=== PATIENT | female | born 1985 | race Caucasian/White ===

== ENCOUNTER 2017-02-06 00:53 | Emergency (ER) | payer SELFPAY ==
[2017-02-06 01:00] VITALS: BP 142/92
[2017-02-06] MEDS ORDERED: IBUPROFEN 800 MG TABLET PO ONE (02:41)
[2017-02-06] MEDS ORDERED: ACETAMINOPHEN 325 MG TABLET PO ONE (02:42)
[2017-02-06] MEDS ORDERED: SILVER SULFADIAZINE 1% CREAM 25 GM TP ONE (02:42)
--- NOTE | 2017-02-06 02:45 | ER Document Report ---
HPI - HPI Patient complains to provider of: sunburn twice Onset: Yesterday - and the day before Onset/Duration: Gradual Quality of pain: Burning Pain Level: 2 Context: 31-year-old female has sunburn that hurts. 2 days ago burned her upper back and is starting to peel and then yesterday when she was having to move things out of the house she got sunburn on bilateral dorsal. Associated Symptoms: None Exacerbated by: Denies Relieved by: Denies Similar symptoms previously: No Recently seen / treated by doctor: No - ROS ROS below otherwise negative: Yes Systems Reviewed and Negative: Yes All other systems reviewed and negative - REPRODUCTIVE LMP: 01/30/17 Reproductive: DENIES: : - DERM Skin Color: Normal, [place] Past Medical History - General Information source: Patient - Social History Smoking Status: Current Every Day Smoker Frequency of alcohol use: None Drug Abuse: None Lives with: Family Family History: None Patient has suicidal ideation: No Patient has homicidal ideation: No - Past Medical History Cardiac Medical History: Reports: Hx Hypertension Pulmonary Medical History: Reports: Hx Pneumonia - 2008 Neurological Medical History: Reports: Hx Migraine, Hx Seizures - 07/2015 Endocrine Medical History: Reports: Hx Diabetes Mellitus Type 2, Hx Hypothyroidism Renal/ Medical History: Reports: Hx Ovarian Cysts. Denies: Hx Peritoneal Dialysis GI Medical History: Reports: Hx Gastroesophageal Reflux Disease, Hx Colonoscopy , Hx Endoscopy Musculoskeltal Medical History: Reports Hx Arthritis, Reports Hx Musculoskeletal Deformity, Reports Hx Musculoskeletal Trauma Psychiatric Medical History: Reports: Hx Anxiety, Hx Attention Deficit Hyperactivity Disorder Traumatic Medical History: Reports: Hx Fractures - Left heel right toe Past Surgical History: Reports: Hx Abdominal Surgery - GASTRIC BYPASS, Hx Section, Hx Gastric Bypass Surgery, Hx Orthopedic Surgery - L WRIST CYST - Immunizations Immunizations up to date: Yes Hx Diphtheria, Pertussis, Tetanus Vaccination: Yes Vertical Provider Document - CONSTITUTIONAL Agree With Documented VS: Yes Exam Limitations: No Limitations - INFECTION CONTROL TRAVEL OUTSIDE OF THE [place] IN LAST 30 DAYS: No - HEENT HEENT: Normal ENT Exam - NECK Neck: Supple. negative: Lymphadenopathy-Left, Lymphadenopathy-Right - RESPIRATORY Respiratory: Breath Sounds Normal, No Respiratory Distress O2 Sat by Pulse Oximetry: 99 - CARDIOVASCULAR Cardiovascular: Regular Rate, Regular Rhythm - GI/ABDOMEN Gastrointestinal: Abdomen Soft, Abdomen Non-Tender - BACK Back: Normal Inspection - MUSCULOSKELETAL/EXTREMETIES Musculoskeletal/Extremeties: MAEW, FROM - NEURO Level of Consciousness: Awake, Alert Motor/Sensory: No Motor Deficit, No Sensory Deficit - DERM Integumentary: Warm, Dry Notes: 1 degree sunburn to dorsal bilateral thighs and upper back Course - Vital Signs Vital signs: Temp Pulse Resp BP Pulse Ox 97.8 F 90 16 142/92 H 99 02/06/17 00:58 02/06/17 00:58 02/06/17 00:58 02/06/17 00:58 02/06/17 00:58 Discharge - Discharge Clinical Impression: First-degree sunburn Condition: Good Disposition: HOME, SELF-CARE Instructions: Sulfa Medications ([facility]), Anti-Inflammatory Medication ([facility]), Acetaminophen, Delaney ([facility]) Additional Instructions: cool compress silvadine cream on back and upper leg delaney over the counter tylenol motrin for inflammation and pain NO sunexposure until healed, then use sunblock Prescriptions: Ibuprofen [Motrin 800 mg Tablet] 800 mg PO Q8HP PRN #30 tab PRN Reason: Silver Sulfadiazine [Silvadene 1% Cream 50 gm Tube] 1 applic TP DAILY #50 grams
== END 2017-02-06 03:29 | disposition home or self-care (01) ==
LOC: ER 00:53
DX: L55.0 Sunburn of first degree (principal); I10 Essential (primary) hypertension; F17.200 Nicotine dependence, unspecified, uncomplicated
CPT/HCPCS: 99282

== ENCOUNTER 2017-04-06 06:29 | Emergency (ER) | payer SELFPAY ==
[2017-04-06] MEDS ORDERED: CLINDAMYCIN PHOSPHATE INJ 300 MG/2 ML SDV IM ONE (07:09)
--- NOTE | 2017-04-06 07:09 | ER Document Report ---
ED Oral Problem - General Mode of Arrival: Ambulatory Information source: Patient TRAVEL OUTSIDE OF THE [place] IN LAST 30 DAYS: No - HPI Patient complains to provider of: Toothache Associated symptoms: Toothache - General Chief Complaint: Toothache Stated Complaint: POSSIBLY ABSCESS TEETH,SWELLING,PAIN Time Seen by Provider: 04/06/17 06:42 Notes: Patient is a 31 year old female who presents to the ED with complaints of a toothache that began on Saturday and worsened on . Patient states yesterday she began having swelling to her face and this morning the pain became excruciating. Patient is on Amoxicillin and started that yesterday. Patient has been taking IBU 800 and OTC Tylenol with no relief. Patient states the pain radiates through her head. She states she has not been to a dentist because she does not have insurance. Patient states she also has no money because her recently left her and her two children. (JAMIE NAVARRO) - Related Data Allergies/Adverse Reactions: ceftriaxone [From Rocephin] Allergy (Verified 04/06/17 06:38) coconut Allergy (Verified 04/06/17 06:38) Iodinated Contrast- Oral and IV Dye Allergy (Verified 04/06/17 06:38) lorazepam [From Ativan] Allergy (Verified 04/06/17 06:38) shellfish derived Allergy (Verified 04/06/17 06:38) Past Medical History - General Information source: Patient - Social History Smoking Status: Unknown if Ever Smoked Family History: None Patient has suicidal ideation: No Patient has homicidal ideation: No - Past Medical History Cardiac Medical History: Reports: Hx Hypertension Pulmonary Medical History: Reports: Hx Pneumonia - 2008 Neurological Medical History: Reports: Hx Migraine, Hx Seizures - 07/2015 Endocrine Medical History: Reports: Hx Diabetes Mellitus Type 2, Hx Hypothyroidism Renal/ Medical History: Reports: Hx Ovarian Cysts. Denies: Hx Peritoneal Dialysis GI Medical History: Reports: Hx Gastroesophageal Reflux Disease, Hx Colonoscopy , Hx Endoscopy Musculoskeltal Medical History: Reports Hx Arthritis, Reports Hx Musculoskeletal Deformity, Reports Hx Musculoskeletal Trauma Psychiatric Medical History: Reports: Hx Anxiety, Hx Attention Deficit Hyperactivity Disorder Traumatic Medical History: Reports: Hx Fractures - Left heel right toe Past Surgical History: Reports: Hx Abdominal Surgery - GASTRIC BYPASS, 2001, Hx Section, Hx Gastric Bypass Surgery, Hx Orthopedic Surgery - L WRIST CYST, 1998 - Immunizations Immunizations up to date: Yes Hx Diphtheria, Pertussis, Tetanus Vaccination: Yes Review of Systems - Review of Systems Constitutional: No symptoms reported EENT: See HPI, Mouth swelling, Dental problem Cardiovascular: No symptoms reported Respiratory: No symptoms reported Gastrointestinal: No symptoms reported Genitourinary: No symptoms reported Female Genitourinary: No symptoms reported Musculoskeletal: No symptoms reported Skin: No symptoms reported Hematologic/Lymphatic: No symptoms reported Neurological/Psychological: No symptoms reported Physical Exam - General General appearance: Appears well, Alert In distress: None - HEENT Head: Normocephalic, Atraumatic Eyes: Normal Extraocular movements intact: Yes Pupils: PERRL Mouth/Lips: Other - all teeth are rotten down to the root and need extracted, no decrepitus or necrosis, no secondary infection or lesions Mucous membranes: Normal Pharynx: Normal, Other - no difficulty swallowing Neck: Normal - non tender - Respiratory Respiratory status: No respiratory distress Breath sounds: Normal - Cardiovascular Rhythm: Regular Heart sounds: Normal auscultation Murmur: No - Abdominal Inspection: Normal Distension: No distension - Back Back: Normal - Extremities General upper extremity: Normal inspection, Normal ROM General lower extremity: Normal inspection, Normal ROM - Neurological Neuro grossly intact: Yes - Psychological Associated symptoms: Normal affect, Normal mood - Skin Skin Temperature: Warm Skin Moisture: Dry Skin Color: Normal Course - Re-evaluation Re-evalutation: 04/06/17 07:11 Patient presents emergency room 3-4 day history of increasing dental pain in her upper teeth with swelling in the left side of her face. No difficulty breathing swelling fever trismus stridor or drooling. Her dentition overall are rotten and need to be removed in their entirety. She says it always is painful got a little bit worse past couple days and has some mild facial swelling on the left. Overall dentition teeth are rotten and extracted. No secondary abscess crepitus necrosis difficulty breathing or swelling. Patient is given clindamycin discharge on clindamycin and Naprosyn. She is going to follow-up with the dental clinic as an outpatient and discussed reasons for ED return sooner 04/06/17 07:12 (JESSICA UGALDE) - Vital Signs Vital signs: Temp Pulse Resp BP Pulse Ox 98.6 F 74 15 100/68 97 04/06/17 07:19 04/06/17 07:19 04/06/17 07:19 04/06/17 07:19 04/06/17 07:19 Discharge - Discharge Clinical Impression: Poor overall dentition, Facial swelling with odontalgia Condition: Stable Disposition: HOME, SELF-CARE Instructions: [facility] Prescriptions: Clindamycin HCl 300 mg PO BID #14 capsule Referrals: [facility] [Provider Group] - Follow up in 3-5 days (Return to the emergency department for increasing worsening or new symptoms) Scribe Attestation: 04/06/17 07:11 I personally performed the services described in the documentation reviewed the documentation recorded by my scribe in my presence and it accurately and completely records my words and actions (JESSICA UGALDE) Scribe Documentation - Scribe Written by Scribe:: tom Dickson, 04/06/2017, 0723 acting as scribe for :: Bro
[2017-04-06 07:24] VITALS: BP 100/68
== END 2017-04-06 07:42 | disposition home or self-care (01) ==
LOC: ER 06:29
DX: K08.89 Other specified disorders of teeth and supporting structures (principal); R22.0 Localized swelling, mass and lump, head
CPT/HCPCS: 96372; 99282

== ENCOUNTER 2017-04-06 13:24 | Emergency (ER) | payer SELFPAY ==
[2017-04-06 13:50] VITALS: BP 126/76
[2017-04-06] MEDS ORDERED: LIDOCAINE 2% VISCOUS SOLN 20 ML UDCUP PO ONE (14:12)
[2017-04-06] MEDS ORDERED: KETOROLAC TROMETHAMINE 60 MG/2 ML SDV IM ONE (14:12)
[2017-04-06] MEDS ORDERED: CLINDAMYCIN HCL 150 MG CAPSULE PO ONE (14:16)
--- NOTE | 2017-04-06 14:32 | ER Document Report ---
HPI - HPI Patient complains to provider of: Dental abscess and facial swelling Onset: Other Onset/Duration: Persistent Quality of pain: Throbbing Severity: Severe Pain Level: 5 Context: Patient was seen in the emergency room this morning and prescribed clindamycin 300 mg twice a day for 7 days. Patient is complaining of excruciating pain that is radiating to her head and down her neck. Associated Symptoms: Other - Facial swelling, left Exacerbated by: Denies Relieved by: Denies Similar symptoms previously: Yes Recently seen / treated by doctor: Yes - ROS ROS below otherwise negative: Yes Systems Reviewed and Negative: Yes All other systems reviewed and negative - CONSTITUTIONAL Constitutional: DENIES: Fever - EENT EENT: DENIES: Congestion Notes: Left dental pain and facial swelling - NEURO Neurology: REPORTS: Headache - CARDIOVASCULAR Cardiovascular: DENIES: Chest pain - RESPIRATORY Respiratory: DENIES: Trouble Breathing - GASTROINTESTINAL Gastrointestinal: DENIES: Abdominal Pain - URINARY Urinary: DENIES: Dysuria - REPRODUCTIVE Reproductive: DENIES: : - MUSCULOSKELETAL Musculoskeletal: DENIES: Extremity pain - DERM Skin Color: Normal Skin Problems: None Past Medical History - General Information source: Patient - Social History Smoking Status: Current Every Day Smoker Cigarette use (# per day): Yes Frequency of alcohol use: Occasional Drug Abuse: None Lives with: Family Family History: None Patient has suicidal ideation: No Patient has homicidal ideation: No - Past Medical History Cardiac Medical History: Reports: Hx Hypertension Pulmonary Medical History: Reports: Hx Pneumonia - 2008 Neurological Medical History: Reports: Hx Migraine, Hx Seizures - 07/2015 Endocrine Medical History: Reports: Hx Diabetes Mellitus Type 2, Hx Hypothyroidism Renal/ Medical History: Reports: Hx Ovarian Cysts GI Medical History: Reports: Hx Gastroesophageal Reflux Disease, Hx Colonoscopy , Hx Endoscopy Musculoskeltal Medical History: Reports Hx Arthritis, Reports Hx Musculoskeletal Deformity, Reports Hx Musculoskeletal Trauma Psychiatric Medical History: Reports: Hx Anxiety, Hx Attention Deficit Hyperactivity Disorder Traumatic Medical History: Reports: Hx Fractures - Left heel right toe Past Surgical History: Reports: Hx Abdominal Surgery - GASTRIC BYPASS, 2001, Hx Section, Hx Gastric Bypass Surgery, Hx Orthopedic Surgery - L WRIST CYST, 1998 - Immunizations Immunizations up to date: Yes Hx Diphtheria, Pertussis, Tetanus Vaccination: Yes Vertical Provider Document - CONSTITUTIONAL Agree With Documented VS: Yes Exam Limitations: No Limitations General Appearance: WD/WN, Moderate Distress Notes: Patient crying, holding jaw - INFECTION CONTROL TRAVEL OUTSIDE OF THE [place] IN LAST 30 DAYS: No - HEENT HEENT: Atraumatic, Normocephalic Mouth Diagram: 1 - area of swelling, pt has very poor dentition throughout. Notes: Patient has moderate swelling to the left jaw without erythema. - RESPIRATORY Respiratory: Breath Sounds Normal, No Respiratory Distress O2 Sat by Pulse Oximetry: 98 - CARDIOVASCULAR Cardiovascular: Regular Rate, Regular Rhythm - MUSCULOSKELETAL/EXTREMETIES Musculoskeletal/Extremeties: MAEW - NEURO Level of Consciousness: Awake, Alert, Appropriate - DERM Integumentary: Warm, Dry Course - Vital Signs Vital signs: Temp Pulse Resp BP Pulse Ox 98.8 F 96 16 126/76 H 98 04/06/17 13:46 04/06/17 13:46 04/06/17 13:46 04/06/17 13:46 04/06/17 13:46 Discharge - Discharge Clinical Impression: Abscess, dental Condition: Good Disposition: HOME, SELF-CARE Instructions: Abscess ([facility]), Clindamycin ([facility]), [facility] Additional Instructions: take all antibiotics as prescribed naproxen as prescribed lidocaine as needed to tooth you must follow up with dentist, your previous paperwork has all the information on it. Call Saturday for appt return as needed Prescriptions: Clindamycin HCl 300 mg PO QID #40 capsule Naproxen [Naprosyn 375 Mg Tablet] 375 mg PO BID #20 tablet
== END 2017-04-06 15:15 | disposition home or self-care (01) ==
LOC: ER 13:24
DX: K04.7 Periapical abscess without sinus (principal); R22.0 Localized swelling, mass and lump, head; F17.210 Nicotine dependence, cigarettes, uncomplicated
CPT/HCPCS: 99283; 96372; J1885; J3490